=== PATIENT | male | born 1970 | race Caucasian/White ===

== ENCOUNTER → 2017-09-11 13:31 | Outpatient (CLI) | payer OTHER, SELFPAY ==
[2017-09-11 13:35] LABS: Bacteria 0 SEEN /hpf (None Seen); Mucous, Urine 0 SEEN /hpf (<or=2+); Squamous Epithelial Cells - UA 0 SEEN /hpf (0-5); White Blood Cells 0 SEEN /hpf (0-5)
[2017-09-11 14:09] LABS: Absolute Lymphocyte Count 1.36 X10^3/ul (0.83-4.51); Absolute Neutrophil Count 3.4 X10^3/uL (2.0-7.7); Basophil# 0.04 X10^3/uL; Basophil% 0.7 % (0-1); Eosinophil# 0.09 X10^3/uL; Eosinophils% 1.6 % (0-5); Hematocrit 41.9 % (40-54); Lymphocyte # 1.36 X10^3/ul (4.0); Lymphocyte % 24.3 % (19-41); Mean Corp Hgb Conc 33.4 g/gl (32-36); Mean Corpuscular Hgb 31.2 pg (27.0-32.0); Mean Corpuscular Volume 93.3 fL (80-94); Mean Platelet Vol. 9.4 fl (6.2-12.0); Monocyte# 0.69 X10^3/uL; Monocyte% 12.3 % (0-10); Neutrophil % 60.7 % (47-70); POSITIVE COUNT NO; POSITIVE DIFFERENTIAL NO; POSITIVE MORPHOLOGY NO; Platelet Count 282 K/mm3 (150-450); RBC Distribution Width CV 13.4 % (11.6-14.6); RBC Distribution Width SD 45.8 fl (35.1-43.9); Red Blood Count 4.49 M/mm3 (4.6-6.2); White Blood Count 5.6 K/mm3 (4.4-11.0)
[2017-09-11 14:10] LABS: Color, Urine Yellow (Yellow); Glucose, Dipstick Normal (Normal); Ketone-Dipstick Negative (Negative); Leukocyte Esterase-Dipstick 25 /ul (Negative); Nitrite-Dipstick Negative (Negative); Occult Blood-Urine 10 /ul (Negative); Protein-Dipstick Negative (Negative); Specific Gravity, Urine 1.005 (1.002-1.030); Urine Bilirubin Dipstick Negative (Negative); Urine Clarity Clear (Clear); Urine Urobilinogen Normal (Normal); Urine pH 6.5 (5.0 - 8.0)
[2017-09-11 14:19] LABS: Red Blood Cells-Urine 0-5 SEEN /hpf (0-5)
[2017-09-11 14:34] LABS: ALB/GLOB Ratio 0.9 RATIO (0.9-2.4); AST(SGOT) 17 U/L (15-37); Alanine Aminotransfer ALT/SGPT 34 U/L (16-61); Albumin, Serum 3.8 g/dL (3.2-5.0); Alkaline Phosphatase 71 U/L (45-117); Anion Gap 7 (5-15); BUN 17 mg/dL (7-18); BUN/Creat Ratio 18.1 RATIO (10-20); CRP 5.68 mg/L (0.0-3.0); Calcium,Total 8.8 mg/dL (8.5-10.1); Chloride 103 mmol/L (98-107); Creatinine, Serum 0.94 mg/dL (0.70-1.30); EST Glomerular Filtration Rate 91 mL/min (>60); Est Glom Filt Rate - Afr Amer 110 mL/min (>60); Globulin 4.3 g/dL (2.2-4.2); Glucose 98 mg/dL (74-106); Lipase 163 U/L (73-393); Potassium 3.8 mmol/L (3.5-5.1); Protein, Total 8.1 g/dL (6.4-8.2); Sodium Level 138 mmol/L (136-145)
== END ==
PROVIDERS: Visit Provider Surgery
DX: R10.31 Right lower quadrant pain (principal)
CPT/HCPCS: 80053; 81001; 83690; 85025; 86140

== ENCOUNTER → 2017-09-18 15:23 | Outpatient (CLI) | payer OTHER, SELFPAY ==
--- NOTE | 2017-09-18 15:36 | CT_ITS ---
STUDY: CT ABDOMEN AND PELVIS WITH CONTRAST REASON FOR EXAM: Male, 47 years old. Right lower quadrant pain RADIATION DOSAGE (If Supplied By Facility): CTDIvol = ( 19.57 ) mGy, DLP = ( 993.18 ) mGycm TECHNIQUE: Transaxial images were obtained from the dome of the diaphragm to the symphysis pubis with oral contrast. 100 ml of Isovue 300 contrast was administered. Sagittal and coronal images were reconstructed. Individualized dose optimization techniques were used for this CT. COMPARISON: None. FINDINGS: The visualized lung bases are unremarkable. The visualized portions of the heart are within normal limits. Normal liver. Normal gallbladder and extrahepatic biliary system. Normal spleen. Normal pancreas. Normal bilateral adrenal glands. Bilateral renal cysts, the largest on the right measuring 4.3 cm. Retroaortic left renal vein. Normal visualized stomach. Normal small intestine. There are multiple colonic diverticula consistent with diverticulosis. The appendix is visualized and appears normal. Aortic calcifications. Normal inferior vena cava. Normal retroperitoneum. Normal urinary bladder. Normal abdominal wall. Normal osseous structures. CT/Abdomen/Pelvis WITH Contrast IMPRESSION: No evidence of acute intestinal pathology or acute obstructive uropathy. No evidence of appendicitis. Electronically Signed: Harmeet Pederson MD at 5:43 EST Tel , Service support ,
== END ==
PROVIDERS: Visit Provider Surgery
DX: R10.31 Right lower quadrant pain (principal)
CPT/HCPCS: 74177; Q9967

== ENCOUNTER 2021-03-30 12:30 | Observation (INO) | payer OTHER, SELFPAY ==
[2021-03-30] VITALS (12 sets, daily range): BP systolic 123–161; BP diastolic 75–97; PULSE 65–84; RESP 14–20; TEMP 36.4–37; O2SAT 94–98; BMI 29.9
--- NOTE | 2021-03-30 13:23 | RAD_ITS ---
STUDY: X-RAY CHEST REASON FOR EXAM: Male, 51 years old. Cough TECHNIQUE: Frontal view of the chest COMPARISON: None. FINDINGS: The lungs are clear. There are no pleural effusions. There is no pneumothorax. The heart is normal in size. The visualized osseous structures are within normal limits. RAD/Chest 1 View (Portable) IMPRESSION: No acute thoracic pathology. Electronically Signed: Dashawn Pierce MD at 14:28 EDT Tel , Service support ,
--- NOTE | 2021-03-30 13:23 | CT_ITS ---
STUDY: CT FACIAL BONES WITHOUT CONTRAST REASON FOR EXAM: Male, 51 years old. Facial trauma RADIATION DOSAGE (If Supplied By Facility): CTDIvol = ( 29.38 ) mGy, DLP = ( 664.99 ) mGycm TECHNIQUE: The patient was scanned in a multi detector CT scanner. Sagittal and coronal images were reconstructed. Individualized dose optimization techniques were used for this CT. COMPARISON: None. FINDINGS: There is a 3 mm radiodense foreign body in the left frontal scalp Normal orbital casper and orbital contents. Normal nasal bones and anterior nasal spine. Normal facial bones. There is no demonstrated fracture. There is mucosal hypertrophy in the left maxillary and ethmoid sinuses. CT/Sinus/Facial Bone IMPRESSION: No facial fracture. 3 mm radiodense foreign body in the left frontal scalp which is of uncertain chronicity. Mucosal hypertrophy in the left maxillary and ethmoid sinus. Electronically Signed: Dashawn Pierce MD at 14:18 EDT Tel , Service support ,
--- NOTE | 2021-03-30 13:23 | RAD_ITS ---
STUDY: X-RAY - LEFT SHOULDER REASON FOR EXAM: Male, 51 years old. Trauma TECHNIQUE: 4 view(s) of the shoulder. COMPARISON: None. FINDINGS: There is no evidence of fracture or dislocation. There are no significant degenerative changes. There are no radiodense foreign bodies. RAD/Shoulder min 2 Views IMPRESSION: No fracture or dislocation. Electronically Signed: Dashawn Pierce MD at 14:26 EDT Tel , Service support ,
--- NOTE | 2021-03-30 13:25 | EKG12_ITS ---
Test Reason : SYNCOPE Blood Pressure : / mmHG Vent. Rate : 075 BPM Atrial Rate : 075 BPM P-R Int : 152 ms QRS Dur : 092 ms QT Int : 394 ms P-R-T Axes : 012 027 030 degrees QTc Int : 439 ms Normal sinus rhythm Normal ECG Confirmed by BECKI PERKINS MD ([id number]), news video editor SUZIE STAPLETON ([id number]) on 04/05/2021 9:18:56 AM Referred By: SUNDEEP
--- NOTE | 2021-03-30 13:26 | EX.ED.DYSGE1 ---
HPI History of Present Illness Chief Complaint: Syncope Informant: patient and family Narrative Narrative: Patient here with family for evaluation of syncopal episode. Patient does not recall the event. He states he awakened around 8 AM, he felt chest pain nausea and lightheaded symptoms while walking to the kitchen. He was found by his daughter on the couch at 11:30 AM this morning. He states he felt fine last evening. He has congestion and cough due to seasonal allergies for which he takes as needed Benadryl. No past medical history. Admits to tobacco history. No family history of MIs at a young age. Occasional alcohol use. Denies recreational drug use. Denies urinary symptoms. Reported he had nausea vomiting. He states he broke his tooth from the fall. Reported there was blood on the ground. Reports left facial tenderness and left shoulder tenderness. No neck or back pain. No previous similar incidents in the past. Prior similar symptoms: No PFSH PFSH Medical History Abdominal pain Abdominal pain in male Home Medications diphenhydramine HCl 50 mg PO Q12H PRN 03/30/21 [History Last Taken 03/29/21] Allergy/AdvReac Type Severity Reaction Status Date / Time No Known Allergies Allergy Unverified 09/11/17 13:13 Family History Father Diabetes CAD (coronary artery disease) Cancer skin cancer and lung cancer Surgical History History of right inguinal hernia repair Social History Smoking Status: Current every day smoker tobacco type: cigarettes alcohol intake: current alcohol intake frequency: holidays/special occasions only ROS ROS ED Constitutional Constitutional ED: Denies chills, fever(s) or sweats Eyes Eyes: Denies change in vision ENT ENT ED: Denies dysphagia or sore throat Cardiovascular Cardiovascular: Reports chest pain; Denies leg edema, palpitations or racing heartbeat Respiratory/Chest Respiratory/Chest: Denies cough, dyspnea or dyspnea on exertion Gastrointestinal Gastrointestinal: Reports nausea; Denies abdominal pain, diarrhea or vomiting Genitourinary Genitourinary ED: Denies dysuria, hematuria or urinary frequency Musculoskeletal Musculoskeletal: Reports arthralgias; Denies back pain, extremity pain or neck pain Integumentary Denies rash or wounds Neurologic Neurologic: Reports headache(s); Denies paresthesias or weakness EXAM Physical Exam Const Vital Signs: 03/30/21 12:31 03/30/21 13:15 03/30/21 14:00 Temperature 97.5 F L 98.3 F Temperature Source Temporal Temporal Pulse Rate 84 83 71 Pulse Rate [Lying] Pulse Rate [Sitting] Pulse Rate [Standing] Respiratory Rate 20 H 18 18 Blood Pressure 143/81 H 146/88 H Blood Pressure [Lying] Blood Pressure [Sitting] Blood Pressure [Standing] Blood Pressure Mean 101 107 Blood Pressure Mean [Lying] Blood Pressure Mean [Sitting] Blood Pressure Mean [Standing] Pulse Ox 94 96 97 Oxygen Delivery Method Room Air Room Air Room Air 03/30/21 16:02 03/30/21 16:15 Temperature Temperature Source Pulse Rate 76 Pulse Rate [Lying] 68 Pulse Rate [Sitting] 79 Pulse Rate [Standing] 80 Respiratory Rate 14 Blood Pressure 161/97 H Blood Pressure [Lying] 139/94 H Blood Pressure [Sitting] 150/89 H Blood Pressure [Standing] 145/95 H Blood Pressure Mean 118 Blood Pressure Mean [Lying] 109 Blood Pressure Mean [Sitting] 109 Blood Pressure Mean [Standing] 111 Pulse Ox 96 Oxygen Delivery Method Room Air Positive well nourished and well developed Constitutional Narrative: GCS 15, appears fatigued. General Appearance ED: well developed HEENT Reports moist mucous membranes HEENT Narrative: No head contusions. No lacerations. No hemotympanum. There is tender palpation left maxillary zygomatic bone. No depression palpated. Erythema along this region. Skin intact. No trismus. There is partial fracture tooth #10, no bleeding. No loosening of teeth. No swelling left upper lip with abrasion, there is no active bleeding or laceration. normocephalic and atraumatic Eyes PERRL, EOMs intact bilaterally and conjunctivae normal General Eye ED: Yes normal appearance of both eyes Neck no lymphadenopathy and supple Neck Narrative: No midline tenderness. General: Negative for tenderness Chest Wall Chest: Negative for tenderness Resp normal respiratory effort and normal air movement Effort and Inspection: symmetric chest movement; Negative for respiratory distress Cardio regular rate, regular rhythm and no murmurs Peripheral Pulses: pulses 2+ throughout GI normal to inspection, nondistended, normoactive bowel sounds and non-tender Palpation: Negative for guarding or rebound tenderness present Back/Spine no CVA tenderness and no thoracic nor lumbar tenderness Back/Spine Narrative: No midline tenderness. No ecchymosis. Extremity normal to inspection Extremity Narrative: Left upper extremity: Tender palpation proximal humerus there is no deformities. Range of motion intact. No clavicular tenderness. Full range of motion right upper extremity. Negative logroll bilateral lower extremities. General Extremety ED: Negative for edema or tenderness General Extremity: Negative for edema Neuro oriented x3 and no sensory deficits noted Sensorium / Orientation: awake and alert Skin no rashes or lesions noted Skin Narrative: See ENT. MDM MDM MDM Narrative Medical decision making narrative: Patient presents with syncopal episode however there is 3 and half hours of unknown time. Reported chest pain EKG with T wave inversions. With head injury trauma scans head neck and face obtained shows no acute process. Troponin returned negative. Labs noted leukocytosis of 14.9. Chest x-ray and urine negative for infection. Left shoulder films also negative for acute process. I did check alcohol and tox screen also negative. Lactic acid 1.8. He was chest pain-free on reevaluation. With patient's 3.5 hours unknown time, seizure still in the differential. I did have telemetry neurology evaluation through the ED. They agree that the seizure is in the differential. He has no PCP for follow-up. Recommended for admission for EEG MRI and cardiac work-up. He will be given aspirin for his transient chest pains. Will discuss with hospitalist for admission. Discussion with hospitalist Dr. Barron for admission. We did evaluate and noted the radiopaque foreign body to his left forehead on CT. This was metallic looking. He does not recall any injuries, there is no fresh wounds to the area. Secondary to this MRI would not be able to be obtained. Read discussed with Dr. Marck Adan neurology, recommended repeat noncontrast CT head in the morning with the EEG. This was relayed to the medicine team. Lab Data Attestation: I reviewed the patient's lab results. Labs: Laboratory Results - last 24 hr 03/30/21 03/30/21 03/30/21 13:00 13:00 13:00 WBC 14.9 H RBC 4.93 Hgb 16.2 Hct 46.7 MCV 94.7 H MCH 32.9 H MCHC 34.7 RDW Std Deviation 45.0 H RDW Coeff of Nicolle 13.0 Plt Count 336 MPV 9.3 Immature Gran % (Auto) 0.900 Neut % (Auto) 78.6 H Lymph % (Auto) 11.0 L Pine % (Auto) 8.5 Eos % (Auto) 0.7 Baso % (Auto) 0.3 Absolute Neuts (auto) 11.7 H Absolute Lymphs (auto) 1.64 Nucleated RBC % 0 Sodium 138 Potassium 3.8 Chloride 105 Carbon Dioxide 27.0 Anion Gap 6 BUN 21 H Creatinine 0.99 Estim Creat Clear Calc 92.96 Est GFR (MDRD) Af Amer 102 Est GFR (MDRD) Non-Af 84 BUN/Creatinine Ratio 21.2 H Glucose 139 H Lactic Acid Calcium 9.0 Total Bilirubin 0.50 AST 17 ALT 34 Alkaline Phosphatase 81 Troponin I High Sens Total Protein 8.4 H Albumin 4.0 Globulin 4.4 H Albumin/Globulin Ratio 0.9 Urine Color Urine Clarity Urine pH Ur Specific [place] Urine Protein Urine Glucose (UA) Urine Ketones Urine Occult Blood Urine Nitrite Urine Bilirubin Urine Urobilinogen Ur Leukocyte Esterase Urine RBC Urine WBC Ur Squamous Epith Cells Urine Bacteria Urine Mucus Urine Opiates Screen Urine Methadone Screen Ur Barbiturates Screen Ur Phencyclidine Scrn Ur Amphetamines Screen U Methamphetamin-MDMA U Benzodiazepines Scrn Urine Cocaine Screen U Cannabinoids Screen Ur Drug Screen Comment Ethyl Alcohol < 3.0 03/30/21 03/30/21 03/30/21 13:32 14:50 14:50 WBC RBC Hgb Hct MCV MCH MCHC RDW Std Deviation RDW Coeff of Nicolle Plt Count MPV Immature Gran % (Auto) Neut % (Auto) Lymph % (Auto) Pine % (Auto) Eos % (Auto) Baso % (Auto) Absolute Neuts (auto) Absolute Lymphs (auto) Nucleated RBC % Sodium Potassium Chloride Carbon Dioxide Anion Gap BUN Creatinine Estim Creat Clear Calc Est GFR (MDRD) Af Amer Est GFR (MDRD) Non-Af BUN/Creatinine Ratio Glucose Lactic Acid 1.8 Calcium Total Bilirubin AST ALT Alkaline Phosphatase Troponin I High Sens Total Protein Albumin Globulin Albumin/Globulin Ratio Urine Color Yellow Urine Clarity Clear Urine pH 6.0 Ur Specific [place] 1.020 Urine Protein 30 H Urine Glucose (UA) Normal Urine Ketones Negative Urine Occult Blood 25 H Urine Nitrite Negative Urine Bilirubin Negative Urine Urobilinogen Normal Ur Leukocyte Esterase Negative Urine RBC 0-5 SEEN Urine WBC 0 SEEN Ur Squamous Epith Cells 0 SEEN Urine Bacteria 0 SEEN Urine Mucus 0 SEEN Urine Opiates Screen NEGATIVE Urine Methadone Screen NEGATIVE Ur Barbiturates Screen NEGATIVE Ur Phencyclidine Scrn NEGATIVE Ur Amphetamines Screen NEGATIVE U Methamphetamin-MDMA NEGATIVE U Benzodiazepines Scrn NEGATIVE Urine Cocaine Screen NEGATIVE U Cannabinoids Screen NEGATIVE Ur Drug Screen Comment Ethyl Alcohol 03/30/21 15:15 WBC RBC Hgb Hct MCV MCH MCHC RDW Std Deviation RDW Coeff of Nicolle Plt Count MPV Immature Gran % (Auto) Neut % (Auto) Lymph % (Auto) Pine % (Auto) Eos % (Auto) Baso % (Auto) Absolute Neuts (auto) Absolute Lymphs (auto) Nucleated RBC % Sodium Potassium Chloride Carbon Dioxide Anion Gap BUN Creatinine Estim Creat Clear Calc Est GFR (MDRD) Af Amer Est GFR (MDRD) Non-Af BUN/Creatinine Ratio Glucose Lactic Acid Calcium Total Bilirubin AST ALT Alkaline Phosphatase Troponin I High Sens 30 Total Protein Albumin Globulin Albumin/Globulin Ratio Urine Color Urine Clarity Urine pH Ur Specific [place] Urine Protein Urine Glucose (UA) Urine Ketones Urine Occult Blood Urine Nitrite Urine Bilirubin Urine Urobilinogen Ur Leukocyte Esterase Urine RBC Urine WBC Ur Squamous Epith Cells Urine Bacteria Urine Mucus Urine Opiates Screen Urine Methadone Screen Ur Barbiturates Screen Ur Phencyclidine Scrn Ur Amphetamines Screen U Methamphetamin-MDMA U Benzodiazepines Scrn Urine Cocaine Screen U Cannabinoids Screen Ur Drug Screen Comment Ethyl Alcohol Radiography Chest X-Ray - ED: 1 View, Read by ED Physician and Read by Radiologist Diagnostic Testing: Radiology Impression Chest X-Ray 03/30/21 13:23 IMPRESSION: No acute thoracic pathology. Electronically Signed: Dashawn Pierce MD at 14:28 EDT Tel , Service support , Facial/Sinus 03/30/21 13:23 IMPRESSION: No facial fracture. 3 mm radiodense foreign body in the left frontal scalp which is of uncertain chronicity. Mucosal hypertrophy in the left maxillary and ethmoid sinus. Electronically Signed: Dashawn Pierce MD at 14:18 EDT Tel , Service support , Shoulder X-Ray 03/30/21 13:23 IMPRESSION: No fracture or dislocation. Electronically Signed: Dashawn Pierce MD at 14:26 EDT Tel , Service support , Brain CT 03/30/21 13:50 IMPRESSION: No acute intracranial abnormality. Electronically Signed: Dashawn Pierce MD at 14:06 EDT Tel , Service support , Cervical Spine CT 03/30/21 13:57 IMPRESSION: No fracture or dislocation in the cervical spine. Mild to moderate degenerative changes which are more pronounced in the lower Emphysema. Cervical spine. Electronically Signed: Dashawn Pierce MD at 14:13 EDT Tel , Service support , Left shoulder x-ray: No fracture or dislocation EKG Initial EKG: Attestation: I personally reviewed and interpreted this EKG as follows: Comments: Sinus rate of 75, no ST changes. There is T wave inversions leads III and aVF. No old for comparison. Discharge Plan Dx/Rx/DC Orders Clinical Impression: Syncope, Chest pain Disposition Disposition: Acute Care Hospital [facility] Discharge Date/Time: 03/30/21 18:25
--- NOTE | 2021-03-30 13:30 | NURSING ---
NO OLD EKGS
[2021-03-30 13:43] LABS: Absolute Lymphocyte Count 1.64 X10^3/uL (0.83-4.51); Absolute Neutrophil Count 11.7 X10^3/uL (2.0-7.7); Basophil# 0.05 X10^3/uL; Basophil% 0.3 % (0-1); Eosinophils% 0.7 % (0-5); Hematocrit 46.7 % (40-54); Hemoglobin 16.2 g/dL (13.0-16.5); Lymphocyte # 1.64 X10^3/ul (0.83-4.51); Mean Corp Hgb Conc 34.7 g/dL (32-36); Mean Corpuscular Hgb 32.9 pg (27.0-32.0); Mean Corpuscular Volume 94.7 fL (80-94); Mean Platelet Vol. 9.3 fl (6.2-12.0); Monocyte# 1.27 X10^3/uL; Monocyte% 8.5 % (0-10); NRBC Flagged by Analyzer 0 % (0-5); Neutrophil # 11.72 X10^3/uL (2.7-7.7); Neutrophil % 78.6 % (47-70); Platelet Count 336 K/mm3 (150-450); Red Blood Count 4.93 M/mm3 (4.6-6.2); White Blood Count 14.9 K/mm3 (4.4-11.0)
--- NOTE | 2021-03-30 13:50 | CT_ITS ---
STUDY: CT BRAIN WITHOUT CONTRAST REASON FOR EXAM: Male, 51 years old. Injury RADIATION DOSAGE (If Supplied By Facility): CTDIvol = ( 44.99 ) mGy, DLP = ( 863.60 ) mGycm TECHNIQUE: Transaxial CT imaging of the brain was performed without administration of intravenous contrast material. Individualized dose optimization techniques were used for this CT. COMPARISON: None. FINDINGS: There is no acute bleed or infarct. There are normal white matter tracts. The ventricles are normal in configuration. There is no hydrocephalus. The mastoid air cells are well aerated. There is no skull fracture. Please see report for the facial bone CT which is dictated separately. CT/Brain/Head without Contrast IMPRESSION: No acute intracranial abnormality. Electronically Signed: Dashawn Pierce MD at 14:06 EDT Tel , Service support ,
[2021-03-30 13:53] LABS: Alcohol, Blood (Medical)-Serum < 3.0 mg/dL
[2021-03-30 13:57] LABS: ALB/GLOB Ratio 0.9 RATIO (0.9-2.4); AST(SGOT) 17 U/L (15-37); Alanine Aminotransfer ALT/SGPT 34 U/L (16-61); Alkaline Phosphatase 81 U/L (45-117); Anion Gap 6 (5-15); BUN 21 mg/dL (7-18); BUN/Creat Ratio 21.2 RATIO (10-20); Chloride 105 mmol/L (98-107); Creatinine, Serum 0.99 mg/dL (0.70-1.30); EST Glomerular Filtration Rate 84 mL/min (>60); Est Glom Filt Rate - Afr Amer 102 mL/min (>60); Estimated Creatinine Clearance 92.96 ml/min; Globulin 4.4 g/dL (2.2-4.2); Glucose 139 mg/dL (74-106); Potassium 3.8 mmol/L (3.5-5.1); Protein, Total 8.4 g/dL (6.4-8.2); Sodium Level 138 mmol/L (136-145)
--- NOTE | 2021-03-30 13:57 | CT_ITS ---
STUDY: CT CERVICAL SPINE WITHOUT CONTRAST REASON FOR EXAM: Male, 51 years old. Injury RADIATION DOSAGE (If Supplied By Facility): CTDIvol = ( 26.27 ) mGy, DLP = ( 621.80 ) mGycm TECHNIQUE: High resolution transaxial imaging was performed without contrast material. Sagittal and coronal images were reconstructed. Individualized dose optimization techniques were used for this CT. COMPARISON: None available. FINDINGS: There is no evidence of fracture or dislocation in the cervical spine. The dens is intact. Alignment is normal. The vertebral body heights are well-maintained. There are [id number] multilevel degenerative changes with facet hypertrophy, disc space narrowing and anterior osteophytes. This is most pronounced at C4/C5 and C5/C6. The visualized paraspinal soft tissues are within normal limits. There are emphysematous changes noted in the lungs. CT/Spine Cervical without Contras IMPRESSION: No fracture or dislocation in the cervical spine. Mild to moderate degenerative changes which are more pronounced in the lower Emphysema. Cervical spine. Electronically Signed: Dashawn Pierce MD at 14:13 EDT Tel , Service support ,
[2021-03-30 14:01] LABS: Lactic Acid 1.8 mmol/L (0.4-1.9)
[2021-03-30] MEDS: 0.9% Normal Saline 1,000 ML 1000 ML IV (14:14)
[2021-03-30] MEDS: Ondansetron 4 MG/2 ML Vial IV (14:14)
[2021-03-30 14:53] LABS: Bacteria 0 SEEN /hpf (None Seen); Mucous, Urine 0 SEEN /hpf (<or=2+); Squamous Epithelial Cells - UA 0 SEEN /hpf (0-5); White Blood Cells 0 SEEN /hpf (0-5)
[2021-03-30 14:55] LABS: Color, Urine Yellow (Yellow); Glucose, Dipstick Normal (Normal); Ketone-Dipstick Negative (Negative); Leukocyte Esterase-Dipstick Negative /ul (Negative); Nitrite-Dipstick Negative (Negative); Occult Blood-Urine 25 /ul (Negative); Protein-Dipstick 30 mg/dl (Negative); Urine Bilirubin Dipstick Negative (Negative); Urine Clarity Clear (Clear); Urine Urobilinogen Normal (Normal)
[2021-03-30 15:00] LABS: Red Blood Cells-Urine 0-5 SEEN /hpf (0-5)
[2021-03-30 15:18] LABS: Amphetamine Urine VISTA NEGATIVE (<1000 ng/mL); Barbiturate Urine VISTA NEGATIVE (< 200 ng/mL); Benzodiazepine Urine VISTA NEGATIVE (< 200 ng/mL); Cocaine Urine VISTA NEGATIVE (< 300 ng/mL); Ecstacy Urine VISTA NEGATIVE (< 500 ng/mL); Methadone Urine VISTA NEGATIVE (< 300 ng/mL); PCP Urine VISTA NEGATIVE (< 25 ng/mL); THC Urine VISTA NEGATIVE (< 50 ng/mL); Vista UDS pH Range 6
--- NOTE | 2021-03-30 15:26 | TELEMED_ITS ---
[facility] has confirmed receipt of a request for visit. This document confirms receipt of the order initiating the consult. To find the results of the consultation, please view the patient's reports for the scanned Telemed Consult.
[2021-03-30 15:45] LABS: Troponin-I HS 30 pg/mL (3.0-78.0)
[2021-03-30] MEDS: Acetaminophen 500 MG Tablet 1000 MG PO (16:13)
[2021-03-30] MEDS: Aspirin 81 MG TAB.CHEW 324 MG PO (16:57)
--- NOTE | 2021-03-30 17:14 | PCM.HP.STD ---
HPI - General General Date of Admission: 03/30/21 HPI Narrative DELTA DAMON, is a 51 M who presented to the emergency department at [facility] on 03/30/2021 after a syncopal episode. The patient states he got up this morning and was feeling his normal self. He got up went to the bathroom went back to bed for a little bit got up and had a bowl of cereal. He states after he ate he felt some chest pain, had some nausea, lightheadedness and some diaphoresis. He was then found on the couch by his daughter at approximately 1130 this morning. She states that there was blood in vomit on the floor in the kitchen. The patient states he is not sure how he got to the couch and remembers nothing from the time he passed out until his daughter found him on the couch. He states he felt fine last evening and was fine this morning when he woke up. He has no significant family history of coronary disease, arrhythmias, or seizure disorder. The only medication he takes on a consistent basis is Benadryl for seasonal allergies. He smokes regularly approximately 10 cigarettes a day, uses alcohol intermittently on a social basis, and denies drug use. He had no loss of bowel or bladder function and did not have any bites on his tongue. He did his hit his face and had a tooth fracture. His vital signs in the emergency department were stable other than some elevated blood pressure readings with the peak being 161/97. His orthostatic static vitals were negative. His CBC shows a mild leukocytosis with a white count of 14.9-I suspect this is reactive, but was otherwise normal. His CMP was overall unremarkable other than mild BUN elevation at 21. His lactic acid was 1.8. His LFTs were within normal limits. His initial sensitivity troponin was 30. A UA was obtained and was unremarkable except for some mild hematuria which will need outpatient follow-up but no signs of infection. His tox screen was negative. CT of his brain was done and was negative for any acute processes. He had multiple imaging studies based on his fall all of which did not show any fractures. He does have a radiodense foreign body in the left frontal scalp area which precludes him from obtaining an MRI. [facility] neurology was consulted and requested admission for further work-up to include an MRI which we are not able to obtain secondary to foreign body, and EEG, imaging of neurovascular supply to the brain, and further lab work-up. They did not recommend antiepileptic drugs at this time. Patient is completely symptom-free at this time other than pain related to his fall. He will be admitted to PCU for further work-up. [facility] Medical History Abdominal pain Abdominal pain in male Home Medications diphenhydramine HCl 50 mg PO Q12H PRN 03/30/21 [History Last Taken 03/29/21] Allergy/AdvReac Type Severity Reaction Status Date / Time No Known Allergies Allergy Unverified 09/11/17 13:13 Family History Father Diabetes CAD (coronary artery disease) Cancer skin cancer and lung cancer Surgical History History of right inguinal hernia repair Social History Smoking Status: Current every day smoker tobacco type: cigarettes alcohol intake: current alcohol intake frequency: holidays/special occasions only ROS Constitutional Constitutional: Denies anorexia, change in weight, chills, fatigue, fever(s), malaise, night sweats, weakness or other Eyes Eyes: Denies blurry vision, change in eye color, change in vision, discharge from eye(s), double vision, erythema, eye pain, loss of vision or other ENT HEENT: Reports headache(s); Denies abnormal hearing, dysphagia, ear pain, epistaxis, hearing loss, nasal congestion, nasal discharge, post nasal drip, sinus pressure, sore throat or other Cardiovascular Cardiovascular: Reports chest pain, lightheadedness and syncope; Denies claudication, dyspnea on exertion, edema, orthopnea, palpitations, paroxysmal nocturnal dyspnea, rapid heart rate or other Respiratory/Chest Respiratory/Chest: Denies cough, dyspnea, excessive phlegm production, hemoptysis, productive cough, shortness of breath at rest, shortness of breath with exertion, wheezing or other Gastrointestinal Gastrointestinal: Reports vomiting; Denies abdominal pain, coffee ground emesis, constipation, diarrhea, dyspepsia, hematemesis, hematochezia, loose stools, melena, nausea or other Genitourinary Genitourinary: Denies burning urination, difficulty urinating, dysuria, hematuria, nocturia, urinary frequency, urinary hesitancy, urinary incontinence, urinary urgency or other Musculoskeletal Musculoskeletal: Reports joint pain; Denies arthralgias, back pain, joint stiffness, joint swelling, myalgias, neck pain or other Neurologic Neurologic: Denies abnormal gait, abnormal speech, confusion, disequilibrium, dizziness, focal weakness, headache(s), numbness, paresthesias, seizure-like activity, seizures, syncope, tingling, tremor(s) or other Psychiatric Psychiatric: Denies anxiety, depression, homicidal ideation, suicidal ideation or other Endocrine Endocrinology: Denies change in body appearance, cold intolerance, excessive sweating, heat intolerance, polydipsia, polyuria or other Hematologic/Lymphatic Hematologic/Lymphatic: Denies anemia, easy bleeding, easy bruising, lymphadenopathy or other Allergic/Immunologic Allergic/Immunologic: Denies rhinitis, hives, eczemia, asthma or other Vital Signs Vital Signs Vital Signs: 03/30/21 12:31 03/30/21 13:15 03/30/21 14:00 Temperature 97.5 F L 98.3 F Temperature Source Temporal Temporal Pulse Rate 84 83 71 Pulse Rate [Lying] Pulse Rate [Sitting] Pulse Rate [Standing] Respiratory Rate 20 H 18 18 Blood Pressure 143/81 H 146/88 H Blood Pressure [Lying] Blood Pressure [Sitting] Blood Pressure [Standing] Blood Pressure Mean 101 107 Blood Pressure Mean [Lying] Blood Pressure Mean [Sitting] Blood Pressure Mean [Standing] Pulse Ox 94 96 97 Oxygen Delivery Method Room Air Room Air Room Air 03/30/21 16:02 03/30/21 16:15 03/30/21 16:59 Temperature 98.3 F Temperature Source Oral Pulse Rate 76 65 Pulse Rate [Lying] 68 Pulse Rate [Sitting] 79 Pulse Rate [Standing] 80 Respiratory Rate 14 16 Blood Pressure 161/97 H 145/95 H Blood Pressure [Lying] 139/94 H Blood Pressure [Sitting] 150/89 H Blood Pressure [Standing] 145/95 H Blood Pressure Mean 118 111 Blood Pressure Mean [Lying] 109 Blood Pressure Mean [Sitting] 109 Blood Pressure Mean [Standing] 111 Pulse Ox 96 95 Oxygen Delivery Method Room Air Room Air Weight Weight: 97.522 kg Body Mass Index (BMI) 29.9 Physical Exam Const alert, oriented x3 and no apparent distress Constitutional Narrative: Middle-aged white male sitting up in bed, appears comfortable, nontoxic, family at bedside, appropriately interactive and conversant General Appearance: cooperative HEENT normocephalic, hearing grossly normal bilaterally and moist oral mucous membranes HEENT Narrative: Mouth and face with abrasions, ecchymosis related to fall Eyes PERRL, EOMs intact bilaterally and conjunctivae normal Neck no lymphadenopathy, supple, no JVD and no carotid bruits Resp normal respiratory effort, no retractions, no use of accessory muscles and clear to auscultation bilaterally Auscultation: Negative for crackles, rales, rhonchi or wheezes Cardio regular rate, regular rhythm, S1 normal heart sound, S2 normal heart sound, no murmurs, no rub, no gallops, no clicks and no JVD GI normal to inspection, nondistended, normoactive bowel sounds, soft to palpation, non-tender and non-distended; Negative for hepatosplenomegaly Extremity normal to inspection, full ROM and no clubbing, cyanosis or edema Peripheral Pulses: Yes pulses 2+ throughout Skin no rashes or lesions noted, no wounds, skin turgor normal, no jaundice, no petechiae and no mottling Neuro oriented x3, CN's II-XII intact bilaterally, moves all extremities and no focal motor deficits Sensorium / Orientation: awake, alert, oriented to person, oriented to place and oriented to time Speech: speech normal Motor Exam: strength 5/5 throughout Psych affect normal Results Lab / Micro Data Attestation: I reviewed the patient's lab results. Result Diagrams: 03/30/21 13:00 03/30/21 13:00 Labs: Laboratory Results - last 24 hr 03/30/21 13:00: WBC 14.9 H, RBC 4.93, Hgb 16.2, Hct 46.7, MCV 94.7 H, MCH 32.9 H, MCHC 34.7, RDW Std Deviation 45.0 H, RDW Coeff of [place] 13.0, Plt Count 336, MPV 9.3, Immature Gran % (Auto) 0.900, Neut % (Auto) 78.6 H, Lymph % (Auto) 11.0 L, [place] % (Auto) 8.5, Eos % (Auto) 0.7, Baso % (Auto) 0.3, Absolute Neuts (auto) 11.7 H, Absolute Lymphs (auto) 1.64, Nucleated RBC % 0 03/30/21 13:00: Sodium 138, Potassium 3.8, Chloride 105, Carbon Dioxide 27.0, Anion Gap 6, BUN 21 H, Creatinine 0.99, Estim Creat Clear Calc 92.96, Est GFR (MDRD) Af Amer 102, Est GFR (MDRD) Non-Af 84, BUN/Creatinine Ratio 21.2 H, Glucose 139 H, Calcium 9.0, Total Bilirubin 0.50, AST 17, ALT 34, Alkaline Phosphatase 81, Total Protein 8.4 H, Albumin 4.0, Globulin 4.4 H, Albumin/Globulin Ratio 0.9 03/30/21 13:00: Ethyl Alcohol < 3.0 03/30/21 13:32: Lactic Acid 1.8 03/30/21 14:50: Urine Color Yellow, Urine Clarity Clear, Urine pH 6.0, Ur Specific [place] 1.020, Urine Protein 30 H, Urine Glucose (UA) Normal, Urine Ketones Negative, Urine Occult Blood 25 H, Urine Nitrite Negative, Urine Bilirubin Negative, Urine Urobilinogen Normal, Ur Leukocyte Esterase Negative, Urine RBC 0-5 SEEN, Urine WBC 0 SEEN, Ur Squamous Epith Cells 0 SEEN, Urine Bacteria 0 SEEN, Urine Mucus 0 SEEN 03/30/21 14:50: Urine Opiates Screen NEGATIVE, Urine Methadone Screen NEGATIVE, Ur Barbiturates Screen NEGATIVE, Ur Phencyclidine Scrn NEGATIVE, Ur Amphetamines Screen NEGATIVE, U Methamphetamin-MDMA NEGATIVE, U Benzodiazepines Scrn NEGATIVE, Urine Cocaine Screen NEGATIVE, U Cannabinoids Screen NEGATIVE, Ur Drug Screen Comment 03/30/21 15:15: Troponin I High Sens 30 Micro: Microbiology 03/30/21 14:10 Nasal Secretion SARS-CoV-2 Antigen (Rapid) - Final Radiology Impression Chest X-Ray 03/30/21 13:23 IMPRESSION: No acute thoracic pathology. Electronically Signed: Dashawn Pierce MD at 14:28 EDT Tel , Service support , Facial/Sinus 03/30/21 13:23 IMPRESSION: No facial fracture. 3 mm radiodense foreign body in the left frontal scalp which is of uncertain chronicity. Mucosal hypertrophy in the left maxillary and ethmoid sinus. Electronically Signed: Dashawn Pierce MD at 14:18 EDT Tel , Service support , Shoulder X-Ray 03/30/21 13:23 IMPRESSION: No fracture or dislocation. Electronically Signed: Dashawn Pierce MD at 14:26 EDT Tel , Service support , Brain CT 03/30/21 13:50 IMPRESSION: No acute intracranial abnormality. Electronically Signed: Dashawn Pierce MD at 14:06 EDT Tel , Service support , Cervical Spine CT 03/30/21 13:57 IMPRESSION: No fracture or dislocation in the cervical spine. Mild to moderate degenerative changes which are more pronounced in the lower Emphysema. Cervical spine. Electronically Signed: Dashawn Pierce MD at 14:13 EDT Tel , Service support , Assessment & Plan Assessment/Plan (1) Syncope: (2) Leukocytosis: (3) Microscopic hematuria: PLAN: Syncope -Differential at this time is quite broad -Unable to perform MRI secondary to radiodense foreign body in left subcutaneous frontal area--> looks similar to a BB -ED is discussing the case with [facility] neurology for further recommendations regarding imaging -Check CTA of the head neck -Check TSH -check b12 -asa 81 mg daily -check lipids -Check echocardiogram and stress test -Cycle cardiac enzymes -Check EEG -Orthostatic vitals are negative -EKG is unremarkable and sinus rhythm -Consider repeat [facility] consult if cardiac work-up is negative Leukocytosis -Suspect reactive -Repeat in the a.m. Trauma from fall -All imaging studies are negative for acute fractures -As needed pain medication to help with pain control Microscopic hematuria -It appears patient has had this at least since 2018 with a comparison on a previous UA -Recommend outpatient follow-up as patient is not on any anticoagulants or antiplatelet agents -Patient does have a history of tobacco abuse -Consider outpatient urology follow-up Tobacco abuse -Patient declines need for nicotine replacement -Recommend cessation DVT prophylaxis -Lovenox 40 mg daily -SCDs CODE STATUS -Full code Charges/Coding Visit Charges Inpatient E&M: 56160 Init Hosp L3
--- NOTE | 2021-03-30 18:45 | CT_ITS ---
STUDY: CTA HEAD AND NECK WITH CONTRAST REASON FOR EXAM: Male, 51 years old. Syncope RADIATION DOSAGE (If Supplied By Facility): CTDIvol = ( 17.28 ) mGy, DLP = ( 644.33 ) mGycm TECHNIQUE: CT angiography was performed with a multi-detector CT scanner. Data acquisition was obtained from the skull base through the vertex following intravenous administration of IV 100mL Isovue-370. MIP images were reconstructed from the axial data set. Post-processing of the angiographic images was performed, with multiplanar reformation and 3D reconstruction. Individualized dose optimization techniques were used for this CT. COMPARISON: No relevant priors. FINDINGS: Normal bilateral petrous carotid arteries. Normal right cavernous carotid artery with a normal supraclinoid bifurcation. Normal left cavernous carotid artery with a normal supraclinoid bifurcation. Probable hypoplastic right A1 segment of the anterior cerebral artery. Normal left A1 segments of the anterior cerebral artery. Normal intact anterior communicating artery (ACOM). Normal bilateral A2 segments of the anterior cerebral arteries. Normal right M1 and M2 segments of the middle cerebral arteries, with a normal M1 bifurcation. Normal left M1 and M2 segments of the middle cerebral arteries, with a normal M1 bifurcation. Normal left posterior communicating artery (PCOM). Nonvisualization of the right posterior communicating artery (PCOM). Normal left vertebral artery. Probable hypoplastic right vertebral artery. Normal basilar artery. The visualized bilateral superior cerebellar (SCA) arteries are normal. Normal left posterior cerebral artery. Nonvisualization of the proximal segment of the right posterior cerebral artery. There is no demonstrated aneurysm of the [place]. AORTIC ARCH: Normal visualized aortic arch. Normal origins of the brachiocephalic, left common carotid, and left subclavian arteries. RIGHT CAROTID ARTERIES: Normal right common carotid artery (CCA). Normal right common carotid bulb. Normal origin of the right internal carotid (ICA) artery without a hemodynamically significant stenosis. Normal visualized cervical portion of the right internal carotid artery. Normal origin of the right external carotid artery (ECA). LEFT CAROTID ARTERIES: Normal left common carotid artery (CCA). Normal left common carotid bulb. Normal origin of the left internal carotid (ICA) artery without a hemodynamically significant stenosis. Normal visualized cervical portion of the left internal carotid artery. Normal origin of the left external carotid artery (ECA). VERTEBRAL ARTERIES: Normal bilateral vertebral arteries. CT/CTA Head AND Neck W/ Contrast IMPRESSION: Normal CTA Head and neck with contrast. Electronically Signed: Constantino Mccabe DO at 22:15 EDT Tel [phone], Service support ,
[2021-03-30] MEDS: Lactated Ringers 1,000 ML 75 ML IV (19:58)
[2021-03-30 20:52] LABS: Troponin-I HS 27 pg/mL (3.0-78.0)
[2021-03-30 21:40] LABS: Troponin-I HS 21 pg/mL (3.0-78.0)
[2021-03-31] VITALS (8 sets, daily range): BP systolic 135–154; BP diastolic 84–96; PULSE 60–74; RESP 14–16; TEMP 36.8–37.1; O2SAT 94–97
[2021-03-31 01:21] LABS: Absolute Lymphocyte Count 1.56 X10^3/uL (0.83-4.51); Absolute Neutrophil Count 7.2 X10^3/uL (2.0-7.7); Basophil# 0.04 X10^3/uL; Basophil% 0.4 % (0-1); Eosinophil# 0.06 X10^3/uL; Eosinophils% 0.6 % (0-5); Hematocrit 40.1 % (40-54); Hemoglobin 13.9 g/dL (13.0-16.5); Lymphocyte # 1.56 X10^3/ul (0.83-4.51); Lymphocyte % 15.6 % (19-41); Mean Corp Hgb Conc 34.7 g/dL (32-36); Mean Corpuscular Hgb 32.8 pg (27.0-32.0); Mean Corpuscular Volume 94.6 fL (80-94); Monocyte# 1.11 X10^3/uL; Monocyte% 11.1 % (0-10); NRBC Flagged by Analyzer 0 % (0-5); Neutrophil # 7.17 X10^3/uL (2.7-7.7); Neutrophil % 71.6 % (47-70); Platelet Count 281 K/mm3 (150-450); RBC Distribution Width CV 12.9 % (11.6-14.6); RBC Distribution Width SD 44.8 fl (35.1-43.9); Red Blood Count 4.24 M/mm3 (4.6-6.2)
[2021-03-31 01:47] LABS: Troponin-I HS 16 pg/mL (3.0-78.0)
[2021-03-31 02:25] LABS: ALB/GLOB Ratio 0.8 RATIO (0.9-2.4); AST(SGOT) 12 U/L (15-37); Alanine Aminotransfer ALT/SGPT 26 U/L (16-61); Albumin, Serum 3.1 g/dL (3.2-5.0); Alkaline Phosphatase 65 U/L (45-117); Anion Gap 7 (5-15); BUN 16 mg/dL (7-18); BUN/Creat Ratio 19.7 RATIO (10-20); Calcium,Total 8.4 mg/dL (8.5-10.1); Chloride 108 mmol/L (98-107); Creatinine, Serum 0.81 mg/dL (0.70-1.30); EST Glomerular Filtration Rate 106 mL/min (>60); Est Glom Filt Rate - Afr Amer 128 mL/min (>60); Estimated Creatinine Clearance 113.62 ml/min; Globulin 3.8 g/dL (2.2-4.2); Glucose 103 mg/dL (74-106); Magnesium 2.1 mg/dL (1.6-2.6); Phosphorus 4.3 mg/dL (2.5-4.9); Potassium 3.5 mmol/L (3.5-5.1); Protein, Total 6.9 g/dL (6.4-8.2); Sodium Level 140 mmol/L (136-145); Thyroid Stim Hormone (TSH) 0.88 uIU/mL (0.358-3.74)
[2021-03-31] MEDS: Acetaminophen 325 MG Tablet 650 MG PO ×2 (03:32→10:21)
--- NOTE | 2021-03-31 05:55 | EKG12_ITS ---
Test Reason : AM EKG Blood Pressure : / mmHG Vent. Rate : 060 BPM Atrial Rate : 060 BPM P-R Int : 158 ms QRS Dur : 094 ms QT Int : 430 ms P-R-T Axes : 047 038 019 degrees QTc Int : 430 ms Normal sinus rhythm Normal ECG Confirmed by MADDIE ANGUIANO, BECKI ([id number]), editorial clerk SUZIE STAPLETON ([id number]) on 04/05/2021 9:27:19 AM Referred By: DR MCMANUS Confirmed By:BECKI PERKINS MD
--- NOTE | 2021-03-31 05:55 | ECHOD_ITS ---
Reason For Study: SYNCOPE Procedure This was a 2D Doppler, Color Flow transthoracic echocardiogram. Exam performed in department. Left Ventricle Normal LV size. The estimated ejection fraction is 60 %. No evidence for diastolic dysfunction. No regional wall motion abnormalities noted. Right Ventricle Normal RV size. Normal systolic function. Atria Normal left atrium. Normal right atrium. No doppler evidence for ASD. Mitral Valve There is no mitral valve stenosis. No mitral valve insufficiency. Tricuspid Valve There is no tricuspid stenosis. Trivial tricuspid valve insufficiency. Unable to estimate RV systolic pressure due to insufficient tricuspid regurgitant envelope. Aortic Valve Trisinus/trileaflet aortic valve. There is no aortic stenosis. No aortic valve insufficiency. Pulmonic Valve There is no pulmonic valvular stenosis. No pulmonic valve insufficiency. Great Vessels Normal aortic root. Pericardium/Pleural No pericardial effusion. MMode/2D Measurements & Calculations LVIDd: 5.4 cm IVSd: 0.93 cm Ao root diam: 3.7 cm LVIDs: 3.7 cm LVPWd: 0.76 cm RVDd: 4.0 cm FS: 30.2 % LAV(MOD-bp): 69.8 ml EDV(MOD-sp2): 98.7 ml SV(MOD-sp2): 63.0 ml LAV(MOD-bp) Indexed: 32.1 ml/m2 ESV(MOD-sp2): 35.7 ml LAV(MOD-sp2): 58.4 ml EF(MOD-sp2): 63.8 % LAV(MOD-sp4): 73.1 ml LA dimension(2D): 3.6 cm LA A4 area: 24.2 cm2 RA A4 area: 18.9 cm2 Time Measurements MV dec time: 0.23 sec Doppler Measurements & Calculations MV E max mason: 79.6 cm/sec Lat Peak E' Mason: 13.3 cm/sec Med Peak E' Mason: 10.6 cm/sec MV A max mason: 68.8 cm/sec E/E' lat: 6.0 E/E' med: 7.5 MV E/A: 1.2 Ao V2 max: 149.4 cm/sec LV V1 max: 116.5 cm/sec TR max mason: 219.4 cm/sec Ao max P.9 mmHg LV V1 max P.4 mmHg TR max P.3 mmHg ECHO/Echo Complete Interpretation Summary The estimated ejection fraction is 60 %. No evidence for diastolic dysfunction. Ordering Physician: Raysa Barron Performed By: Janice March, RDCS, RVT
[2021-03-31] MEDS: Aspirin 81 MG TAB.CHEW PO (06:08)
[2021-03-31 10:03] LABS: Vitamin B12 373 pg/mL (211-911)
[2021-03-31] MEDS: Lactated Ringers 1,000 ML 75 ML IV (10:22)
--- NOTE | 2021-03-31 11:24 | STRESSREP_ITS ---
Stress Test Report Date: 03/31/2021 Procedure: Exercise tolerance test/imaging study Indications: Syncope Consent: Per the patient Procedure: The patient exercised on a Bishnu protocol for 7 minutes achieving a peak heart rate of 144 bpm (85% predicted maximal heart rate) with a peak blood pressure 178/82 mmHg and a peak MET capacity of 10.1 METs. The baseline ECG demonstrated normal sinus rhythm. The peak exercise ECG demonstrated no significant ischemic ST-T changes. EKG during recovery revealed no significant ischemic changes [There were no cardiac dysrhythmias pretest, during exercise, or recovery]. The functional capacity was considered normal for age. There was [no complaint of chest discomfort during exercise or recovery]. The examination was discontinued secondary to dyspnea. Impression: 1. Technically adequate (percent predicted maximal heart rate greater than 85%) exercise tolerance test 2. Stress test is negative for exercise-induced EKG changes of ischemia 3. The test test is negative for exercise-induced chest pain 4. Functional capacity is normal for age 5. Nuclear images pending Myocardial perfusion imaging study: Technique: The patient was injected with 14.3 mCi of technetium 99m Cardiolite and subsequently rest SPECT Cardiolite nuclear imaging was obtained in the horizontal long, vertical long, and short axis views. The patient exercised on a Bishnu protocol. Please see above for details. The patient was injected with 44.8 mCi of technetium 99m Cardiolite and subsequently stress SPECT Cardiolite nuclear imaging was obtained in the horizontal long, vertical long, and short axis views. A gated Cardiolite study at peak stress was obtained. Interpretation: Rest and stress SPECT Cardiolite nuclear imaging status post realignment, normalization, and attenuation correction, demonstrates overall normal myocardial radioisotope uptake. The gated Cardiolite study demonstrates no sig nificant regional wall motion abnormalities. The reported LVEF is 66%. Impression: 1. There is no evidence of significant ischemia or infarction. 2. The gated Cardiolite study reports an LVEF of 66%. This note was generated with [employer] software. It may contain incorrect words, spelling, and punctuation that were not noted in checking the note before signing.
--- NOTE | 2021-03-31 11:40 | PCM.DC ---
Discharge Instructions Diet Discharge Diet: No restrictions Activity Discharge Activity: Return to Normal Activity Weight Bearing Status: Weight bearing as tolerated Dressing / Incision Call your doctor if you observe: Fever of 101 or Higher, Numbness or Tingling, Shortness of breath, Dizziness, Chest pain, Increased palpitations (irregular heartbeat) and Calf discomfort Follow Up Care Please Follow Up With: Primary care provider When: Within the next two weeks. Test Results: Test results from this visit will be discussed in further detail at your follow-up appointment, if applicable. Discharge Plan Admission Admit Date/Time: 03/30/21 16:37 Primary Reason for Your Visit: Syncope Attending Provider: Franc Coleman Primary Care Provider: Care Physician,No Primary Instructions Patient Instructions: ED Chest Pain, Noncardiac Discharge Orders/Prescriptions Prescriptions: New aspirin 81 mg tablet,chewable 81 mg PO DAILY Qty: 30 RF: 0 Continued diphenhydramine HCl 25 mg Capsule 50 mg PO Q12H PRN (Reason: ALLERGIES) RF: 0 Referrals / Follow Up: Care Physician,No Primary [Primary Care Provider] - Within 2 Weeks Disposition Disposition (needs filled in before D/C Order can be placed): Home, Self Care
--- NOTE | 2021-03-31 12:36 | CASEMGMT ---
Pt independent in room and no therapy needed. SStaten RN CM
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
== END 2021-03-31 11:42 | disposition home or self-care (01) ==
LOC: ED 14:08 → PCU 17:06
PROVIDERS: Admitting Provider Internal Medicine; Emergency Provider Emergency Medicine
DX: R55 Syncope and collapse (principal); R42 Dizziness and giddiness; R07.89 Other chest pain; R11.2 Nausea with vomiting, unspecified; M25.512 Pain in left shoulder; F17.210 Nicotine dependence, cigarettes, uncomplicated; S02.5XXA Fracture of tooth (traumatic), initial encounter for closed fracture; X58.XXXA Exposure to other specified factors, initial encounter; Y93.9 Activity, unspecified; Y92.9 Unspecified place or not applicable; R03.0 Elevated blood-pressure reading, without diagnosis of hypertension; D72.829 Elevated white blood cell count, unspecified; R31.29 Other microscopic hematuria
CPT/HCPCS: 36415; 70450; 70486; 70496; 70498; 71045; 72125; 73030; 78452; 80053; 80307; 81001; 82077; 82607; 83605; 83735; 84100; 84443; 84484; 85025; 87426; 93005; 93017; 93306; 95819; 96361; 96374; 99218; 99251; 99285; 99406; A9500; J7030; J7120; Q9967; A4216; G0378; G0463; J2405